=== PATIENT | male | born 1985 | race Two or more races ===

== ENCOUNTER 2024-01-05 16:43 | Emergency (ER) | payer OTHER, SELFPAY ==
[2024-01-05 16:54] VITALS: BP 137/87; PULSE 52; RESP 18; TEMP 36.4; O2SAT 97
--- NOTE | 2024-01-05 17:13 | CRLHL7_ITS ---
For Patients: As a result of the Century Cures Act, medical imaging exams and procedure reports are released immediately into your electronic medical record. You may view this report before your referring provider. If you have questions, please contact your health care provider. Indication: Trauma. Technique: CT of the cervical spine performed without IV contrast. Comparison: None available. Findings: The cervical vertebral body heights are maintained without evidence of fracture. Disc space heights are preserved. Straightening of the cervical lordosis. No spondylolisthesis. No overt evidence for high-grade spinal canal or neural foraminal compromise throughout the cervical spine. The visualized lung apices are clear. No prevertebral soft tissue swelling. Impression: No acute osseous injury involving the cervical spine. Please note that all CT scans at this facility use dose modulation, iterative reconstruction, and/or weight-based dosing when appropriate to reduce radiation dose to as low as reasonably achievable. Dictated by Sean Vora MD @ 01/05/2024 6:25:26 PM (Electronically Signed)
--- NOTE | 2024-01-05 17:13 | CRLHL7_ITS ---
For Patients: As a result of the Century Cures Act, medical imaging exams and procedure reports are released immediately into your electronic medical record. You may view this report before your referring provider. If you have questions, please contact your health care provider. Indication: Technique: CT of the brain was performed without intravenous contrast. Comparison: None relevant available at this institution. Findings: No acute blurring of the bosch-white differentiation. There is no intracranial hemorrhage. The ventricles are proportionate to the cerebral sulci. The 4th ventricle is midline. Basal cisterns appear patent. No abnormal extra-axial fluid collection identified. There is no intracranial mass, mass effect or midline shift identified. No depressed calvarial fracture. Small superficial frontal scalp contusion. Impression: No acute intracranial process. Please note that all CT scans at this facility use dose modulation, iterative reconstruction, and/or weight-based dosing when appropriate to reduce radiation dose to as low as reasonably achievable. Dictated by Sean Vora MD @ 01/05/2024 6:23:33 PM (Electronically Signed)
--- NOTE | 2024-01-05 17:22 | ED.GENADULT ---
[facility] - General Adult General Date Seen: 01/05/24 Chief complaint: Laceration/Wound Stated complaint: hit head on steel beam Time Seen by Provider: 01/05/24 16:53 Source: patient and science interpreter Mode of arrival: ambulatory History of Present Illness HPI narrative: Patient is a 38-year-old male presenting to emergency department for laceration to his head. This ratio usable 2 cm up from his hairline. He states he was at work when a steel beam swung down and hit him on top of the head. He was wearing a hard hat but knocked off his hard hat. He is now having pain around the laceration denies pain anywhere oz. Initially went to urgent care and then sent to the ED for further imaging. Denies neck pain, denies lightheadedness, dizziness, fevers, chills, weakness, numbness, vision changes. No other concerns noted. Is unaware when his last tetanus was Related Data Home Medications ?Medication ?Instructions ?Recorded ?Confirmed No Known Home Medications 01/05/24 01/05/24 Allergies Allergy/AdvReac Type Severity Reaction Status Date / Time No Known Drug Allergies Allergy Verified 01/05/24 16:56 Review of Systems Narrative: Pertinent systems reviewed and were negative unless stated in HPI Exam Narrative: Exam Narrative: Const: Well-nourished, Well-developed, in mild distress Eyes: PERRL, no conjunctival injection, and symmetrical lids HENT: Atraumatic external nose and ears. Moist mucous membranes. 3 cm laceration about 2 in up from his hairline Neck: Symmetric, trachea midline, No thyromegaly. MSK:Extremities w/o deformity, Normal Active ROM, no tenderness to cervical spine Skin: Warm, Dry. No rashes or lesions. Neuro: Normal Muscle tone, No focal neurological deficits. Psych: Awake, Alert, & Oriented x3. Appropriate mood and affect. Const: Vital Signs, click to edit/add: Vital Signs - 24 hr 01/05/24 16:54 Temperature 97.5 F L Pulse Rate [Right Pulse Oximeter] 52 L Respiratory Rate 18 Blood Pressure [Ri ght Upper Arm] 137/87 Pulse Oximetry 97 Oxygen Delivery Me thod Room Air Course Vital Signs Vital signs: Initial Vital Signs Temperature 97.5 F L 01/05/24 16:54 Temperature Source Temporal Artery Scan 01/05/24 16:54 Pulse Rate 52 L 01/05/24 16:54 Respiratory Rate 18 01/05/24 16:54 Blood Pressure 137/87 01/05/24 16:54 Blood Pressure Mean 103 01/05/24 16:54 Blood Pressure Position Sitting 01/05/24 16:54 Pulse Oximetry 97 01/05/24 16:54 Oxygen Delivery Method Room Air 01/05/24 16:54 Vital Signs Temperature 97.5 F L 01/05/24 16:54 Pulse Rate 52 L 01/05/24 16:54 Respiratory Rate 18 01/05/24 16:54 Blood Pressure 137/87 01/05/24 16:54 Pulse Oximetry 97 01/05/24 16:54 Oxygen Delivery Method Room Air 01/05/24 16:54 Temperature 97.5 F L 01/05/24 16:54 Pulse Rate 52 L 01/05/24 16:54 Respiratory Rate 18 01/05/24 16:54 Blood Pressure 137/87 01/05/24 16:54 Pulse Oximetry 97 01/05/24 16:54 Oxygen Delivery Method Room Air 01/05/24 16:54 Medications Administered Medications: Generic Name Dose Route Start Last Admin Trade Name Freq PRN Reason Stop Dose Admin Lidocaine/Epinephrine 20 ml 01/05/24 18:29 01/05/24 18:54 Lidocaine 1%-Epi 1:100,000 10 Ml INFILTRATI 01/05/24 18:30 Not Given ONCE ONE Discontinued Medications Generic Name Dose Route Start Last Admin Trade Name Freq PRN Reason Stop Dose Admin Diphtheria/Tetanus/Acell Pertussis 0.5 ml 01/05/24 17:13 01/05/24 17:38 Tetanus/Diphth/Pertussis 0.5 Ml Syringe IM 01/05/24 17:14 0.5 ml .ONCE ONE Administration Morphine Sulfate 4 mg 01/05/24 17:17 01/05/24 17:41 Morphine 4 Mg/Ml Inj IM 01/05/24 17:18 4 mg ONCE ONE Administration Medical Decision Making MDM Narrative Medical decision making narrative: The patient is a 38-year-old male presenting after being hit in the head by a piece of steel at work. He has a 3 cm cm laceration on his scalp just above his hairline. Will do a CT scan of the head and cervical spine. These were done showing no concerning abnormalities. Laceration was closed using dede any tolerate the procedure well. Will be discharged at this time. Imaging Data CT scan head: Attestation: I have reviewed the pertinent imaging results. Radiologist's impression: No acute blurring of the bosch-white differentiation. There is no intracranial hemorrhage. The ventricles are proportionate to the cerebral sulci. The 4th ventricle is midline. Basal cisterns appear patent. No abnormal extra-axial fluid collection identified. There is no intracranial mass, mass effect or midline shift identified. No depressed calvarial fracture. Small superficial frontal scalp contusion. Impression: No acute intracranial process. Please note that all CT scans at this facility use dose modulation, iterative reconstruction, and/or weight-based dosing when appropriate to reduce radiation dose to as low as reasonably achievable. Dictated by Sean Vora MD @ 01/05/2024 6:23:[address] scan cervical spine: Attestation: I have reviewed the pertinent imaging results. Radiologist's impression: No acute osseous injury involving the cervical spine. Please note that all CT scans at this facility use dose modulation, iterative reconstruction, and/or weight-based dosing when appropriate to reduce radiation dose to as low as reasonably achievable. Dictated by Sean Vora MD @ 01/05/2024 6:25:26 PM Discharge Plan Discharge Clinical Impression: Laceration Closed head injury Qualifiers: Encounter type: initial encounter Qualified Code(s): S09.90XA - Unspecified injury of head, initial encounter Patient Disposition: Home, Self-Care Condition: Stable Instructions: Head Injury (ED), Staple Care (ED) Additional Instructions: Follow-up with your primary care provider or urgent care in the next 7 days to have the 6 dede removed. For next 6 months, once sutures are removed, whenever you go outside put a dab of sunscreen over the laceration site to improve scar appearance. Topical antibiotics are not necessary at this time. Patient can shower but do not submerge the laceration until sutures are removed Prescriptions: No Action No Known Home Medications Follow Up/Referrals: Provider,Not a Local [Primary Care Provider] - Stand Alone Forms: MyHealth Info Instructions Procedures Laceration Scalp: Name of person performing procedure: Wolfgang Menjivar Site: scalp Size (cm): 3 Description: linear and clean Depth: simple, single layer Local Anesthetic: lidocaine 1% Amount of anesthesia used (mL): 5 Pre-repair: wound explored and irrigated extensively Skin layer closed with: other (6 dede)
[2024-01-05] MEDS: TETANUS/DIPHTH/PERTUSSIS 0.5 ML SYRINGE IM (17:38)
[2024-01-05] MEDS: MORPHINE 4 MG/ML INJ IM (17:41)
[2024-01-05] MEDS: LIDOCAINE 1 % PF 30 ML INJECTION (19:01)
== END 2024-01-05 19:14 | disposition home or self-care (01) ==
PROVIDERS: Emergency Provider Student in an Organized Health Care Education/Training Program
DX: S01.01XA Laceration without foreign body of scalp, initial encounter (principal); W20.8XXA Other cause of strike by thrown, projected or falling object, initial encounter; Y99.0 Civilian activity done for income or pay; Z23 Encounter for immunization
CPT/HCPCS: 12002; 70450; 72125; 90471; 90715; 96372; 99283; 99284; J2001; J2270